=== PATIENT | male | born 1995 | race Caucasian/White ===

== ENCOUNTER 2017-04-21 16:02 | Emergency (ER) | payer OTHER, BC ==
[2017-04-21] MEDS ORDERED: Lidocaine 1% with EPINEPHrine 1:100,000 20 ML MDV INJECT ONE (16:09)
[2017-04-21 16:30] VITALS: BP 162/94
--- NOTE | 2017-04-21 17:32 | EDM.PDOC ---
[id number] Complaint: R LEG LAC/INJURY Time Seen by Provider: 04/21/17 16:09 Source of Information: Reports: Patient History Limitations: Reports: No Limitations - History of Present Illness INITIAL COMMENTS - FREE TEXT/NARRATIVE: The patient is a 21-year-old male with a chief complaint of a right lower extremity wound. 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 He stepped through a grate and the leg was cut by something sharp as he accidentally stepped through a grate at ground level. He has a significant wound to the right lower extremity below his knee. Moderate bleeding. Moderate pain. No additional injury. No numbness or tingling. Able to ambulate but with pain. Right Leg Pain Score (Numeric/FACES): 7 - Related Data Allergies Allergy/AdvReac Type Severity Reaction Status Date / Time No Known Allergies Allergy Verified 04/21/17 16:30 Home Meds: Home Meds . [No Known Home Meds] 03/21/16 [History] Past Medical History - Past Health History Medical/Surgical History: Denies Medical/Surgical History Psychiatric History: Reports: None - Infectious Disease History Infectious Disease History: Reports: None - Past Surgical History HEENT Surgical History: Reports: Adenoidectomy Social & Family History - Family History Family Medical History: Noncontributory - Tobacco Use Smoking Status *Q: Current Every Day Smoker Years of Tobacco use: 5 Packs/Tins Daily: 1 - Caffeine Use Caffeine Use: Reports: None - Alcohol Use Days Per Week of Alcohol Use: 6 Number of Drinks Per Day: 4 Total Drinks Per Week: 24 - Recreational Drug Use Recreational Drug Use: Yes Recreational Drug Type: Reports: Methamphetamine - Living Situation & Occupation Living situation: Reports: Single Occupation: Employed Review of Systems - Review of Systems Review Of Systems: See Below Constitutional: Reports: No Symptoms Respiratory: Denies: Shortness of Breath Cardiovascular: Denies: Chest Pain GI/Abdominal: Denies: Abdominal Pain Musculoskeletal: Reports: Leg Pain Skin: Reports: Wound ED EXAM, GENERAL - Physical Exam Exam: See Below Exam Limited By: No Limitations General Appearance: Alert, WD/WN, No Apparent Distress Eye Exam: Bilateral Eye: Normal Inspection Nose: Normal Inspection Throat/Mouth: Normal Inspection Head: Atraumatic, Normocephalic Neck: Normal Inspection, Supple, Non-Tender, Full Range of Motion Respiratory/Chest: No Respiratory Distress Cardiovascular: Normal Peripheral Pulses Extremities: Other (Patient has a large wound just distal to the right knee, in the calf muscle area. It measures 11 x 5.5 cm. It extends deeply through the subcutaneous tissues and there is a small component of laceration that extends into the musculature. No arterial bleeding. Mildly venous bleeding. No foreign body. No bony tenderness or deformity. Distal motor/sensation/perfusion intact.) ED TRAUMA EXTREMITY PROCEDURES - Laceration/Wound Repair Right Lower Anterior Leg Lac/Wound Length In cm: 11 Appearance: Subcutaneous, Muscle, Irregular, Mildly Contaminated Distal NVT: Neuro & Vascular Intact, No Tendon Injury Anesthetic Type: Local Local Anesthesia - Lidocaine (Xylocaine): 1% with EPI Local Anesthetic Volume: Other (12) Exploration/Debridement/Repair: Wound Explored, In a Bloodless Field, Explored to Base, No Foreign Material Found Closed With: Sutures Suture Size: 4-0 # of Sutures: 6 Suture Type: Prolene, Interrupted, Simple Suture Size: 4-0 # of Sutures: 1 Repaired With: Vicryl Drain Placement: No Sterile Dressing Applied: Nurse Complications: No Course - Vital Signs Last Recorded V/S: Last Vital Signs Temp 36.2 C 04/21/17 16:07 Pulse 136 H 04/21/17 16:07 Resp 22 H 04/21/17 16:07 BP 162/94 H 04/21/17 16:07 Pulse Ox 98 04/21/17 16:07 - Orders/Labs/Meds Orders: Active Orders 24 hr Category Date Time Status Tibia Fibula Rt [CR] Stat Exams 04/21/17 16:09 Taken Meds: Medications Discontinued Medications Generic Name Dose Route Start Last Admin Trade Name Sandy PRN Reason Stop Dose Admin Lidocaine/Epinephrine 20 ml 04/21/17 16:09 04/21/17 16:31 Xylocaine 1% With Epinephrine 1:100,000 INJECT 04/21/17 16:10 20 ml ONETIME ONE Administration Departure - Departure Time of Disposition: 17:31 Disposition: Home, Self-Care 01 Clinical Impression: Laceration of leg, right Qualifiers: Encounter type: initial encounter Qualified Code(s): S81.811A - Laceration without foreign body, right lower leg, initial encounter - Discharge Information Instructions: Laceration Care, Adult Referrals: PCP,None [Primary Care Provider] - Forms: ED Department Discharge Additional Instructions: Keep wound clean and dry. Starting Monday, to remove bandage and wash with gentle soap and water. After washing, pat the wound dry and apply antibiotic ointment. Keep wound covered and clean. Sutures should be removed in 10-14 days. You may call [phone] to schedule suture removal with the walk-in clinic here. return to the emergency department for any signs of infection including increasing pain, redness on the swelling, or pus under the wound. Take ibuprofen and/or Tylenol as needed for pain. - My Orders Last 24 Hours: My Active Orders 04/21/17 16:09 Tibia Fibula Rt [CR] Stat - Assessment/Plan Last 24 Hours: My Active Orders 04/21/17 16:09 Tibia Fibula Rt [CR] Stat
--- NOTE | 2017-04-23 17:30 | CR ---
Right tibia and fibula: AP and lateral views of the right tibia and fibula were obtained. Comparison: No previous study. Soft tissue injury is identified proximally. This occurs along the medial aspect slightly distal to the knee. No acute fracture or other bony abnormality is appreciated. Impression: 1. Soft tissue injury. 2. No bony abnormality is identified on right tibia/fibula study. Diagnostic code #3
== END 2017-04-21 17:35 | disposition home or self-care (01) ==
LOC: JD.ED 16:02
DX: S81.811A Laceration without foreign body, right lower leg, initial encounter (principal); F17.210 Nicotine dependence, cigarettes, uncomplicated; Z98.890 Other specified postprocedural states; W26.8XXA Contact with other sharp object(s), not elsewhere classified, initial encounter
CPT/HCPCS: 12034; 13121; 13122; 73590-26-RT; 73590-RT; 99282-25; 99283-25

== ENCOUNTER 2019-07-14 10:10 | Emergency (ER) | payer BC, OTHER ==
[2019-07-14 10:22] VITALS: BP 119/104; PULSE 89
[2019-07-14] MEDS ORDERED: Doxycycline 100 MG Cap PO ONE (10:27)
--- NOTE | 2019-07-14 10:28 | EDM.PDOC ---
ED HPI GENERAL MEDICAL PROBLEM - General Chief Complaint: Lower Extremity Injury/Pain Stated Complaint: RIGHT LEG SWOLLEN AND RED Time Seen by Provider: 07/14/19 10:22 Source of Information: Reports: Patient History Limitations: Reports: No Limitations - History of Present Illness INITIAL COMMENTS - FREE TEXT/NARRATIVE: 23-year-old male presents to the ED for evaluation of redness and swelling and pain over the tibial tuberosity anterior right leg. This developed gradually over the last 3 days. No known injuries to the area. He has a large patch of eczema approximately 6 cm in diameter inferior to the erythematous area. He'll also healing scar on the medial aspect of the proximal leg as well. The entire leg has diffusely pink color to it and blanches with pressure. There is slight edema. There is no clinical evidence of a DVT. This appears to be secondary to do development of a cellulitis over the tibial tuberosity. He has multiple hairs in this area that could be the source of infection and also the eczematous dermatitis which is been present for many months could possibly be the source of infection from scratching. Onset: Gradual Onset Date: 07/11/19 Duration: Day(s):, Constant, Getting Worse Location: Reports: Lower Extremity, Right (Area of erythema which is tender to touch over the tibial tuberosity just inferior to the patella right leg.) Quality: Reports: Ache, Burning Severity: Moderate Improves with: Reports: Rest Worsens with: Reports: Movement (Certain movements and walking will aggravate it.) Context: Denies: Activity, Exercise, Lifting, Sick Contact, Trauma, Other Associated Symptoms: Reports: Other (Aware that the right leg is swollen.). Denies: Confusion Treatments TECHNICAL SUPPORT ASSISTANT: Reports: Other (see below) (None.) - Related Data Allergies Allergy/AdvReac Type Severity Reaction Status Date / Time No Known Allergies Allergy Verified 07/14/19 10:22 Home Meds: Home Meds Betamethasone Dipropionate [Diprosone 0.05% Oint] 45 gm .XX DAILY #1 tube [Rx] Doxycycline [Vibramycin] 100 mg PO BID #28 cap 07/14/19 [Rx] Past Medical History - Past Health History Medical/Surgical History: Denies Medical/Surgical History Psychiatric History: Reports: None - Infectious Disease History Infectious Disease History: Reports: None - Past Surgical History HEENT Surgical History: Reports: Adenoidectomy Social & Family History - Family History Family Medical History: Noncontributory - Caffeine Use Caffeine Use: Reports: None - Living Situation & Occupation Living situation: Reports: Single Occupation: Employed Review of Systems - Review of Systems Review Of Systems: See Below Constitutional: Denies: Chills, Diaphoresis, Fever, Other Eyes: Reports: No Symptoms. Denies: Drainage, Decreased Acuity Ears: Reports: No Symptoms Nose: Reports: No Symptoms Mouth/Throat: Reports: No Symptoms Respiratory: Reports: No Symptoms Cardiovascular: Reports: No Symptoms GI/Abdominal: Reports: No Symptoms Genitourinary: Reports: No Symptoms Musculoskeletal: Reports: Leg Pain (Right leg pain. See history of present illness) Skin: Reports: Other (Has a chronic dermatitis right upper lateral leg greater than 6 months.) Neurological: Reports: No Symptoms Psychiatric: Reports: No Symptoms ED EXAM, GENERAL - Physical Exam Exam: See Below Exam Limited By: No Limitations General Appearance: Alert, WD/WN, No Apparent Distress, Other (Vital signs show temperature to be 36.8. Pulse is 89 sinus respiratory is 18 BP is felt to be inaccurate as the pulse pressures too close together at 1 /09/21. Sats are 97% on room air.) Eye Exam: Bilateral Eye: Normal Inspection Respiratory/Chest: No Respiratory Distress, Lungs Clear, Normal Breath Sounds, No Accessory Muscle Use, Chest Non-Tender Cardiovascular: Normal Peripheral Pulses, Regular Rate, Rhythm, No Edema, No Gallop, No Murmur, No Rub Peripheral Pulses: 3+: Posterior Tibial (L), Posterior Tibial (R), Dorsalis Pedis (L), Dorsalis Pedis (R) Extremities: Other (Examination of the right lower extremity shows a 6-7 cm circular patch of erythema over the tibial tuberosity of the right leg just inferior to the patella. This areas were warm to palpation and slightly tender. There is a 6 cm circular area of eczematous type rash lateral inferior to the area of cellulitis. Old scar to the medial aspect of the proximal tibia as well. The area that is infected has numerous hairs there and he'll follow commands the source of infection as well as the excoriated eczematous dermatitis. The entire leg is slightly pink in color. It is slightly edematous. There is no clinical evidence of a DVT however. His range of motion of the knee is normal.) Neurological: Alert, Oriented, CN II-XII Intact, Normal Cognition Psychiatric: Normal Affect, Normal Mood Skin Exam: Warm, Dry, Intact, Erythema, Increased Warmth (6 x 7 cm patch over the right tibial tuberosity.), Rash (Eczematous rash 7 cm in diameter to the right lateral leg.) Course - Vital Signs Last Recorded V/S: Last Vital Signs Temp 36.8 C 07/14/19 10:19 Pulse 89 07/14/19 10:19 Resp 18 07/14/19 10:19 BP 119/104 H 07/14/19 10:19 Pulse Ox 97 07/14/19 10:19 - Orders/Labs/Meds Meds: Medications Discontinued Medications Generic Name Dose Route Start Last Admin Trade Name Sandy PRN Reason Stop Dose Admin Doxycycline Hyclate 200 mg 07/14/19 10:27 Vibramycin PO 07/14/19 10:28 ONETIME ONE - Radiology Interpretation Free Text/Narrative:: 23-year-old male attends the ED due to increasing pain and redness and swelling of his right leg just below the kneecap. No trauma to the area noted. He has a patch of chronic eczema dermatitis to the right lateral leg inferior to the area of erythema. Is a healing scar to the medial aspect of the proximal tibia as well. There is a 7 cm circular area of increased warmth and tenderness overlying the tibial tuberosity on the right leg. Entire leg is slightly pink in color and is slightly swollen. No pitting edema evident. No clinical evidence of a DVT. He is a developing cellulitis of the anterior aspect of his leg either secondary to hair follicles in this area or secondary to excoriations to the eczematous dermatitis area. Treatment will be dicyclomine 100 mg twice daily for the next 14 days to clear up infection Placed him on betamethasone 0.5% ointment to be applied daily at bedtime to the area of eczema to get this to heal completely. Follow-up is advised if he's not markedly improved in 72 hours time. Motrin for pain if needed Departure - Departure Time of Disposition: 10:28 Disposition: Home, Self-Care 01 Condition: Fair Clinical Impression: Cellulitis of right leg without foot, Eczema of lower leg - Discharge Information *PRESCRIPTION DRUG MONITORING PROGRAM REVIEWED*: Not Applicable *COPY OF PRESCRIPTION DRUG MONITORING REPORT IN PATIENT HEIDE: Not Applicable Prescriptions: Betamethasone Dipropionate [Diprosone 0.05% Oint] 45 gm .XX DAILY #1 tube Doxycycline [Vibramycin] 100 mg PO BID #28 cap Instructions: Cellulitis, Adult, Eczema Referrals: PCP,None [Primary Care Provider] - Forms: ED Department Discharge Additional Instructions: Evaluation the emergency room today in regards to painful redness and swelling of the right lower extremity that has developed over the last 3 days. It appears that you have a chronic dermatitis called eczema on the right lateral aspect of your upper leg that has caused a superior facial infection in the mid upper leg with increased redness and swelling. Redness and swelling involves the entire extremity due to the lymphatic vessels draining the extremity being infected. Is a healing scar to the medial or inside aspect of your upper leg as well. However this does not to be the source of infection. Treatment is antibiotic doxycycline 100 mg twice daily for the next 14 days to clear up infection.. First 2 tablets were provided through the ED today. She also prescription for trauma betamethasone ointment to be applied to the eczema rash right lateral upper leg every day at bedtime until cleared which will be to be about 3 weeks. Expect marked improvement in the redness and swelling of the right lower extremity over the next 72 hours. If not markedly improved he should be seen again. May use Motrin 600 mg every 6 hours if needed for discomfort.
== END 2019-07-14 10:43 | disposition home or self-care (01) ==
LOC: JD.ED 10:10
DX: L03.115 Cellulitis of right lower limb (principal); L30.9 Dermatitis, unspecified
CPT/HCPCS: 99283; A9270

== ENCOUNTER 2020-04-10 22:05 | Emergency (ER) | payer BC ==
[2020-04-10 22:27] VITALS: BP 111/72; PULSE 82
[2020-04-10] MEDS ORDERED: cefTRIAXone 1 GM, Lidocaine 1% 2.1 ML IM SCH ×2 (22:45)
--- NOTE | 2020-04-10 22:46 | EDM.PDOC ---
ED HPI GENERAL MEDICAL PROBLEM - General Chief Complaint: Upper Extremity Injury/Pain Stated Complaint: RED STRIPE UP LEFT ARM Time Seen by Provider: 04/10/20 22:33 Source of Information: Reports: Patient History Limitations: Reports: No Limitations - History of Present Illness INITIAL COMMENTS - FREE TEXT/NARRATIVE: This is a 24-year-old male. 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 He noted some soreness in his dorsal forearm distally on the left side when he went to sleep when he woke up this morning he noticed some red streaks up into his elbow and then going all the way up into his axilla now. He denies any axilla swelling or pain though he does have some mild tenderness in the red streaks at the medial elbow area. He denies any fever or chills he denies any other acute symptoms. 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: Reports: Other (see below) Other 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: none Left Arm Pain Score (Numeric/FACES): 2 - Related Data Allergies Allergy/AdvReac Type Severity Reaction Status Date / Time No Known Allergies Allergy Verified 07/14/19 10:22 Home Meds: Home Meds cephALEXin [Keflex] 500 mg PO TID #21 capsule 04/10/20 [Rx] Past Medical History - Past Health History Medical/Surgical History: Denies Medical/Surgical History Psychiatric History: Reports: None Dermatologic History: Reports: Cellulitis, Eczema Other Dermatologic History: right lower leg - Infectious Disease History Infectious Disease History: Reports: None - Past Surgical History HEENT Surgical History: Reports: Adenoidectomy Social & Family History - Family History Family Medical History: Noncontributory - Tobacco Use Smoking Status *Q: Current Every Day Smoker Years of Tobacco use: 4 Packs/Tins Daily: 0.5 - Caffeine Use Caffeine Use: Reports: Soda, Tea - Living Situation & Occupation Living situation: Reports: Single Occupation: Employed Review of Systems - Review of Systems Review Of Systems: See Below Constitutional: Denies: Chills, Fever Eyes: Reports: No Symptoms Ears: Reports: No Symptoms Nose: Reports: No Symptoms Mouth/Throat: Reports: No Symptoms Respiratory: Reports: No Symptoms Cardiovascular: Reports: No Symptoms GI/Abdominal: Reports: No Symptoms Genitourinary: Reports: No Symptoms Musculoskeletal: Reports: No Symptoms Skin: Reports: Other (Red streaks left arm) Neurological: Reports: No Symptoms Psychiatric: Reports: No Symptoms ED EXAM, GENERAL - Physical Exam Exam: See Below Exam Limited By: No Limitations General Appearance: Alert, WD/WN, No Apparent Distress Eye Exam: Bilateral Eye: Normal Inspection Ears: Normal External Exam Nose: Normal Inspection Throat/Mouth: Normal Inspection, Normal Lips, Normal Voice, No Airway Compromise Head: Normocephalic Neck: Supple Respiratory/Chest: No Respiratory Distress Back Exam: Full Range of Motion Extremities: Normal Range of Motion, Other (Has 3 red streaks going from his dorsal distal forearm wrapping ventrally into the medial elbow area and then on the inner surface of the upper arm into the axilla. He does have a small lymph node that is tender on the medial elbow. His axilla is nontender and there is no lymphadenopathy noted. He has full range of motion of that left upper extremity.) Neurological: Alert, Oriented Psychiatric: Normal Affect, Normal Mood Skin Exam: Warm, Dry Course - Vital Signs Last Recorded V/S: Last Vital Signs Temp 97.7 F 04/10/20 22:24 Pulse 82 04/10/20 22:24 Resp 20 04/10/20 22:24 BP 111/72 04/10/20 22:24 Pulse Ox 100 04/10/20 22:24 Departure - Departure Time of Disposition: 22:43 Disposition: Home, Self-Care 01 Condition: Good Clinical Impression: Left arm cellulitis, Lymphadenitis - Discharge Information *PRESCRIPTION DRUG MONITORING PROGRAM REVIEWED*: Not Applicable *COPY OF PRESCRIPTION DRUG MONITORING REPORT IN PATIENT HEIDE: Not Applicable Prescriptions: cephALEXin [Keflex] 500 mg PO TID #21 capsule Instructions: Cellulitis, Adult, [id number] Referrals: PCP,None [Primary Care Provider] - Additional Instructions: Get the antibiotics tomorrow and start taking them tomorrow evening, if you have a fever or you start getting pain in the axilla you need to return to the ER, consider taking some probiotics with the antibiotic so you do not develop diarrhea, follow-up with your family doctor later this week for recheck, return to the ER if needed Sepsis Event Note (ED) - Evaluation Sepsis Screening Result: No Definite Risk - Focused Exam Vital Signs: Vital Signs Temp Pulse Resp BP Pulse Ox 04/10/20 22:24 97.7 F 82 20 111/72 100
== END 2020-04-10 23:00 | disposition home or self-care (01) ==
LOC: JD.ED 22:05
DX: L03.114 Cellulitis of left upper limb (principal); I88.9 Nonspecific lymphadenitis, unspecified; F17.210 Nicotine dependence, cigarettes, uncomplicated
CPT/HCPCS: 96372; 99283; J0696; J2001